=== PATIENT | female | born 1980 | race American Indian/Alaskan Native ===

== ENCOUNTER 2018-10-27 15:46 | Emergency (ER) | payer SELFPAY ==
[2018-10-27 16:56] VITALS: BP 117/68
--- NOTE | 2018-10-27 16:58 | Event Note ---
ED Screening Note Date of service: 10/27/18 Time: 16:54 ED Screening Note: 37 y/o female comes in for vaginal bleeding Lmp end of August. Reports that she is 3 weeks preg. Having abd pain. 2 Miscarriages This initial assessment/diagnostic orders/clinical plan/treatment(s) is/are subject to change based on patients health status, clinical progression and re- assessment by fellow clinical providers in the ED. Further treatment and workup at subsequent clinical providers discretion. Patient/guardian urged not to elope from the ED as their condition may be serious if not clinically assessed and managed. Initial orders include:
[2018-10-27 18:30] LABS: Basophils % (Auto) 0.8 % (0.0-1.8); Eosinophils # (Auto) 0.1 K/mm3 (0.0-0.4); Eosinophils % (Auto) 1.2 % (0.0-4.3); Hematocrit 34.8 % (30.3-42.9); Hemoglobin 11.6 gm/dl (10.1-14.3); Lymphocytes # (Auto) 1.6 K/mm3 (1.2-5.4); Lymphocytes % (Auto) 33.1 % (13.4-35.0); Mean Corpuscular HGB Conc 33 % (30-34); Mean Corpuscular Volume 88 fl (79-97); Monocytes # (Auto) 0.4 K/mm3 (0.0-0.8); Monocytes % (Auto) 8.1 % (0.0-7.3); Platelet Count 226 K/mm3 (140-440); Red Blood Count 3.93 M/mm3 (3.65-5.03); Red Cell Distribution Width 14.7 % (13.2-15.2)
[2018-10-27 18:33] LABS: Bilirubin,Urine NEG (Negative); Blood,Urine LG (Negative); Color,Urine Yellow (Yellow); Mucus,Urine FEW /HPF; Protein,Urine <15 mg/dL mg/dL (Negative); Urobilinogen,Urine < 2.0 mg/dL (<2.0)
[2018-10-27 19:02] LABS: Alanine Aminotransferase 22 units/L (7-56); Albumin 4.4 g/dL (3.9-5); BUN/Creatinine Ratio 17; Blood Urea Nitrogen 12 mg/dL (7-17); Calcium 9.3 mg/dL (8.4-10.2); Hemolysis Index 0
--- NOTE | 2018-10-27 19:48 | Emergency Department Report ---
ED HPI - General Chief complaint: Vaginal Bleeding Stated complaint: POSS MISCARRIAGE Time Seen by Provider: 10/27/18 17:38 Source: patient Mode of arrival: Ambulatory Limitations: No Limitations - History of Present Illness Initial comments: This is a 37-year-old female nontoxic, well nourished in appearance, no acute signs of distress presents to the ED with c/o of vaginal bleeding and pelvic cramping x1 day. Patient denies any abdominal pain. Patient denies any vaginal discharge or foul odor. Patient denies any nausea, vomiting, chest pain, shortness of breathe, fever, chills, headache, stiff neck, numbness, tingling. Patient denies any urinary symptoms. Patient denies any allergies or PMH. -: days(s) (1) Location: pelvis Radiation: none Severity: mild Severity scale (0 -10): 3 Quality: cramping, aching Consistency: constant Improves with: none Worsens with: none Associated symptoms: vaginal bleeding. denies: nausea/vomiting, vaginal discharge, abdominal pain, dysuria, headache, vision changes, malaise, dysparuenia, rash, seizure, shortness of breath, syncope, weakness Vaginal bleeding: light :: Yes Number of weeks : 3 Pre- care: none - Related Data Allergies Allergy/AdvReac Type Severity Reaction Status Date / Time No Known Allergies Allergy Verified 10/27/18 16:57 ED Review of Systems ROS: Stated complaint: POSS MISCARRIAGE Other details as noted in HPI Constitutional: denies: chills, fever Eyes: denies: eye pain, eye discharge, vision change ENT: denies: ear pain, throat pain Respiratory: denies: cough, shortness of breath, wheezing Cardiovascular: denies: chest pain, palpitations Endocrine: no symptoms reported Gastrointestinal: denies: abdominal pain, nausea, diarrhea Genitourinary: abnormal menses. denies: urgency, dysuria, discharge Musculoskeletal: denies: back pain, joint swelling, arthralgia Skin: denies: rash, lesions Neurological: denies: headache, weakness, paresthesias Psychiatric: denies: anxiety, depression Hematological/Lymphatic: denies: easy bleeding, easy bruising ED Past Medical Hx - Past Medical History Previous Medical History?: No - Surgical History Past Surgical History?: No - Social History Smoking Status: Current Some Day Smoker Substance Use Type: None ED Physical Exam - General Limitations: No Limitations General appearance: alert, in no apparent distress - Head Head exam: Present: atraumatic, normocephalic - Neck Neck exam: Present: normal inspection, full ROM. Absent: tenderness, meningismus, lymphadenopathy - Respiratory Respiratory exam: Present: normal lung sounds bilaterally. Absent: respiratory distress, wheezes, rales, rhonchi, stridor, chest wall tenderness, accessory muscle use, decreased breath sounds, prolonged expiratory - Cardiovascular Cardiovascular Exam: Present: regular rate, normal rhythm, normal heart sounds. Absent: bradycardia, tachycardia, irregular rhythm, systolic murmur, diastolic murmur, rubs, gallop - GI/Abdominal GI/Abdominal exam: Present: soft, normal bowel sounds. Absent: distended, tenderness, guarding, rebound, rigid, diminished bowel sounds - Extremities Exam Extremities exam: Present: normal inspection, full ROM - Back Exam Back exam: Present: normal inspection, full ROM. Absent: tenderness, CVA tenderness (R), CVA tenderness (L), muscle spasm, paraspinal tenderness, vertebral tenderness, rash noted - Neurological Exam Neurological exam: Present: alert, oriented X3, normal gait - Psychiatric Psychiatric exam: Present: normal affect, normal mood - Skin Skin exam: Present: warm, dry, intact, normal color. Absent: rash ED Course Vital Signs 10/27/18 16:54 Temperature 98.8 F Pulse Rate 70 Respiratory 18 Rate Blood Pressure 117/68 [Right] O2 Sat by Pulse 99 Oximetry - Reevaluation(s) Reevaluation #1: 10/27/18 19:48 Patient is speaking in full sentences with no signs of distress noted. ED Medical Decision Making - Lab Data Result diagrams: 10/27/18 17:44 10/27/18 17:44 - Medical Decision Making This is a 37-year-old female presents with vaginal bleeding. Patient is stable and was examined by me. Normal abdominal exam. US OB has been ordered but patie nt was not to be found. Daryl and myself called patient several times to listed phone number and is unable to get in touch with patient. Ua obtained. Quantative serum test obtained. Patient left ELOPED without telling anyone. Critical care attestation.: If time is entered above; I have spent that time in minutes in the direct care of this critically ill patient, excluding procedure time. ED Disposition Clinical Impression: Vaginal bleeding Disposition: Z ELOPED Is pt being admited?: No Condition: Stable
== END 2018-10-27 21:24 | disposition left against medical advice (07) ==
LOC: ED 15:46
DX: O20.0 Threatened abortion (principal); Z53.21 Procedure and treatment not carried out due to patient leaving prior to being seen by health care provider
CPT/HCPCS: 36415; 80053; 81001; 84702; 85025; 86900; 86901

== ENCOUNTER 2021-07-31 10:29 | Emergency (ER) | payer SELFPAY ==
[2021-07-31 11:40] LABS: Bilirubin,Urine NEG (Negative); Blood,Urine MOD (Negative); Color,Urine Yellow (Yellow); Protein,Urine <15 mg/dL mg/dL (Negative); Urobilinogen,Urine < 2.0 mg/dL (<2.0)
[2021-07-31 11:49] LABS: HCG Qualitative,Urine Negative (Negative)
--- NOTE | 2021-07-31 12:00 | Emergency Department Report ---
ED Abdominal Pain HPI - General Chief Complaint: Abdominal Pain Stated Complaint: BLOOD IN URINE/ABDOMINA PAIN PUI?: No Time Seen by Provider: 07/31/21 11:19 Source: patient Mode of arrival: Ambulatory Limitations: No Limitations - History of Present Illness Initial Comments: 40 Y F with no significant PMH reports abdominal pain for about 6 months with blood in urine and fatigue and weakness for 2 weeks. denies N/V/D. report tubal ligation over 10 years ago denies concerns for . No other symptoms reported. MD Complaint: abdominal pain Onset/Timin -: month(s) Location: LLQ, RLQ Radiation: none Migration to: no migration Severity: mild Severity scale (0 -10): 5 Quality: cramping, dull Worsens With: movement - Related Data Previous Rx's Medication Instructions Recorded Last Taken Type Acetaminophen/Codeine [Tylenol 1 tab PO Q6H PRN 3 Days #12 tab 07/31/21 Unknown Rx /Codeine # 3 tab] Allergies Allergy/AdvReac Type Severity Reaction Status Date / Time No Known Allergies Allergy Verified 10/27/18 16:57 ED Review of Systems ROS: Stated complaint: BLOOD IN URINE/ABDOMINA PAIN Other details as noted in HPI Constitutional: denies: chills, fever Eyes: denies: eye pain, eye discharge, vision change ENT: denies: ear pain, throat pain Respiratory: denies: cough, shortness of breath, wheezing Cardiovascular: denies: chest pain, palpitations Endocrine: no symptoms reported Gastrointestinal: denies: abdominal pain, nausea, diarrhea Genitourinary: hematuria. denies: urgency, dysuria, discharge Musculoskeletal: denies: back pain, joint swelling, arthralgia Skin: denies: rash, lesions Neurological: denies: headache, weakness, paresthesias Psychiatric: denies: anxiety, depression Hematological/Lymphatic: denies: easy bleeding, easy bruising ED Past Medical Hx - Past Medical History Previous Medical History?: No - Surgical History Past Surgical History?: No - Social History Smoking Status: Never Smoker Substance Use Type: None - Medications Home Medications: Home Medications Medication Instructions Recorded Confirmed Last Taken Type Acetaminophen/Codeine [Tylenol 1 tab PO Q6H PRN 3 Days #12 tab 07/31/21 Unknown Rx /Codeine # 3 tab] ED Physical Exam - General Limitations: No Limitations General appearance: alert, in no apparent distress - Eye Eye exam: Present: normal appearance - ENT ENT exam: Present: mucous membranes moist - Respiratory Respiratory exam: Present: normal lung sounds bilaterally. Absent: respiratory distress - Cardiovascular Cardiovascular Exam: Present: regular rate, normal rhythm. Absent: systolic murmur, diastolic murmur, rubs, gallop - GI/Abdominal GI/Abdominal exam: Present: soft, distended, tenderness (bilateral lower abdominal ), normal bowel sounds. Absent: guarding, rebound - Extremities Exam Extremities exam: Present: normal inspection - Neurological Exam Neurological exam: Present: alert, oriented X3 - Psychiatric Psychiatric exam: Present: normal affect, normal mood - Skin Skin exam: Present: warm, dry, intact, normal color. Absent: rash ED Course Vital Signs 07/31/21 07/31/21 07/31/21 10:50 11:33 15:08 Temperature 98.6 F 98.0 F Pulse Rate 99 H 85 Respiratory 16 18 Rate Blood Pressure 111/67 120/74 [Left] O2 Sat by Pulse 99 99 99 Oximetry - Consultations Consultation #1: 07/31/21 14:08 [paged OB education program specialist Dr. Pavel Castano due to US findings of 15cm heterogeneous mass with internal vascularity ED Medical Decision Making - Lab Data Result diagrams: 07/31/21 11:49 07/31/21 11:49 - Radiology Data Radiology results: report reviewed very large 15 cm heterogeneous mass intrauterine per US findings - Medical Decision Making labs reviewed - no acute process noted. US - 15 cm intrauterine mass noted paged OB Dr Evans education program specialist [employer] and was inform to have patient follow up with her in office and D/C home with pain medication patient was informed of results to follow up with OB-[employer] SUPERVISOR. patient agrees with plan of care and verbalized understanding. Lab Results 07/31/21 07/31/21 07/31/21 Range/Units 11:09 11:49 11:49 WBC 4.1 L (4.5-11.0) K/mm3 RBC 3.78 (3.65-5.03) M/mm3 Hgb 7.6 L (10.1-14.3) gm/dl Hct 25.8 L (30.3-42.9) % MCV 68 L (79-97) fl MCH 20 L (28-32) pg MCHC 30 (30-34) % RDW 20.7 H (13.2-15.2) % Plt Count 271 (140-440) K/mm3 Lymph % (Auto) 38.7 H (13.4-35.0) % [place] % (Auto) 11.8 H (0.0-7.3) % Eos % (Auto) 2.7 (0.0-4.3) % Baso % (Auto) 0.9 (0.0-1.8) % Lymph # (Auto) 1.6 (1.2-5.4) K/mm3 [place] # (Auto) 0.5 (0.0-0.8) K/mm3 Eos # (Auto) 0.1 (0.0-0.4) K/mm3 Baso # (Auto) 0.0 (0.0-0.1) K/mm3 Seg Neutrophils % 45.9 (40.0-70.0) % Seg Neutrophils # 1.9 (1.8-7.7) K/mm3 Sodium 141 (137-145) mmol/L Potassium 4.1 (3.6-5.0) mmol/L Chloride 109.1 H (98-107) mmol/L Carbon Dioxide 23 (22-30) mmol/L Anion Gap 13 mmol/L BUN 13 (7-17) mg/dL Creatinine 0.6 (0.6-1.2) mg/dL Estimated GFR > 60 ml/min BUN/Creatinine Ratio 22 % Glucose 84 (65-100) mg/dL Calcium 9.1 (8.4-10.2) mg/dL Total Bilirubin 0.20 (0.1-1.2) mg/dL AST 19 (5-40) units/L ALT 18 (7-56) units/L Alkaline Phosphatase 62 (35-129) units/L Total Protein 6.3 (6.3-8.2) g/dL Albumin 3.7 L (3.9-5) g/dL Albumin/Globulin Ratio 1.4 % Urine Color Yellow (Yellow) Urine Turbidity Clear (Clear) Urine pH 5.0 (5.0-7.0) Ur Specific [place] 1.023 (1.003-1.030) Urine Protein <15 mg/dl (Negative) mg/dL Urine Glucose (UA) Neg (Negative) mg/dL Urine Ketones Neg (Negative) mg/dL Urine Blood Mod (Negative) Urine Nitrite Neg (Negative) Urine Bilirubin Neg (Negative) Urine Urobilinogen < 2.0 (<2.0) mg/dL Ur Leukocyte Esterase Neg (Negative) Urine WBC (Auto) 1.0 (0.0-6.0) /HPF Urine RBC (Auto) 1.0 (0.0-6.0) /HPF U Epithel Cells (Auto) 6.0 (0-13.0) /HPF Urine HCG, Qual Negative (Negative) Vital Signs 07/31/21 07/31/21 07/31/21 10:50 11:33 15:08 Temperature 98.6 F 98.0 F Pulse Rate 99 H 85 Respiratory 16 18 Rate Blood Pressure 111/67 120/74 [Left] O2 Sat by Pulse 99 99 99 Oximetry Critical care attestation.: If time is entered above; I have spent that time in minutes in the direct care of this critically ill patient, excluding procedure time. ED Disposition Clinical Impression: Uterine mass, Uterine fibroid Disposition: 01 HOME / SELF CARE / HOMELESS Is pt being admited?: No Condition: Stable Instructions: Uterine Fibroids, Abdominal Pain (ED) Prescriptions: Acetaminophen/Codeine [Tylenol /Codeine # 3 tab] 1 tab PO Q6H PRN 3 Days #12 tab PRN Reason: Pain , Severe (7-10) Referrals: DUYEN MCGOWAN MD [Primary Care Provider] - 3-5 Days JOSE CARLOS EVANS MD [Staff Physician] - 3-5 Days
[2021-07-31 12:07] LABS: Basophils % (Auto) 0.9 % (0.0-1.8); Eosinophils # (Auto) 0.1 K/mm3 (0.0-0.4); Eosinophils % (Auto) 2.7 % (0.0-4.3); Hematocrit 25.8 % (30.3-42.9); Hemoglobin 7.6 gm/dl (10.1-14.3); Lymphocytes # (Auto) 1.6 K/mm3 (1.2-5.4); Lymphocytes % (Auto) 38.7 % (13.4-35.0); Mean Corpuscular HGB Conc 30 % (30-34); Monocytes # (Auto) 0.5 K/mm3 (0.0-0.8); Monocytes % (Auto) 11.8 % (0.0-7.3); Platelet Count 271 K/mm3 (140-440); Red Blood Count 3.78 M/mm3 (3.65-5.03)
[2021-07-31 12:16] LABS: Mean Corpuscular Volume 68 fl (79-97); Red Cell Distribution Width 20.7 % (13.2-15.2)
[2021-07-31 12:22] LABS: Alanine Aminotransferase 18 units/L (7-56); Albumin 3.7 g/dL (3.9-5); BUN/Creatinine Ratio 22; Blood Urea Nitrogen 13 mg/dL (7-17); Calcium 9.1 mg/dL (8.4-10.2); Hemolysis Index 1
--- NOTE | 2021-07-31 13:48 | Ultrasound Report ---
US pelvic complete INDICATION / CLINICAL INFORMATION: lower abdominal pain. TECHNIQUE: Transabdominal. Duplex Color Doppler used: Yes. COMPARISON: None available FINDINGS: UTERUS: Very large 15cm heterogeneous mass with internal vascularity. RIGHT ADNEXA: Ovary is not well visualized. Normal color Doppler blood flow. LEFT ADNEXA: No significant ovarian cyst or mass. Normal color Doppler blood flow. URINARY BLADDER: No significant abnormality. FREE FLUID: None. ADDITIONAL FINDINGS: None. IMPRESSION: 1. Very large intrauterine mass which is thought to be a subserosal fibroid. Gynecological consultat ion is recommended. Signer Name: Jeanmarie Chandler MD Signed: 07/31/2021 1:44 PM Workstation Name: [id number]
[2021-07-31 15:09] VITALS: BP 120/74
== END 2021-07-31 15:09 | disposition home or self-care (01) ==
LOC: ED 10:29
DX: N85.2 Hypertrophy of uterus (principal); D25.9 Leiomyoma of uterus, unspecified
CPT/HCPCS: 36415; 76856; 80053; 81001; 81025; 85025; 99284

== ENCOUNTER 2021-08-20 07:28 | Emergency (ER) | payer SELFPAY ==
[2021-08-20 07:34] VITALS: BP 119/56
--- NOTE | 2021-08-20 10:35 | XRay Report ---
CHEST 2 VIEWS INDICATION: FEVER. COMPARISON: none FINDINGS: Support devices: None. Heart: Within normal limits. Lungs/pleura: No acute air space or interstitial disease. No pneumothorax. Additional findings: None. IMPRESSION: Normal chest x-ray Signer Name: Edouard Chávez Jr, MD Signed: 08/20/2021 10:31 AM Workstation Name: [id number]
[2021-08-20 11:12] LABS: Hematocrit 27.2 % (30.3-42.9); Hemoglobin 8.2 gm/dl (10.1-14.3); Mean Corpuscular HGB Conc 30 % (30-34); Mean Corpuscular Volume 68 fl (79-97); Platelet Count 292 K/mm3 (140-440); Red Blood Count 4.02 M/mm3 (3.65-5.03); Red Cell Distribution Width 22.2 % (13.2-15.2)
[2021-08-20 11:23] LABS: Alanine Aminotransferase 45 units/L (7-56); Albumin 4.5 g/dL (3.9-5); Blood Urea Nitrogen 10 mg/dL (7-17); Calcium 9.4 mg/dL (8.4-10.2); Hemolysis Index 1
[2021-08-20 11:26] LABS: BUN/Creatinine Ratio 17
[2021-08-20 11:40] LABS: Bacteria,Urine 1+ /HPF (Negative); Bilirubin,Urine NEG (Negative); Blood,Urine NEG (Negative); Color,Urine Yellow (Yellow); HCG Qualitative,Urine Negative (Negative); Mucus,Urine FEW /HPF; Protein,Urine <15 mg/dL mg/dL (Negative); Urobilinogen,Urine < 2.0 mg/dL (<2.0)
[2021-08-20] MEDS ORDERED: ACETAMINOPHEN 500 MG TAB PO ONE (11:54)
--- NOTE | 2021-08-20 11:55 | Emergency Department Report ---
ED Fever HPI - General Chief Complaint: Fever Stated Complaint: BODYACHES,HEADACHES Time Seen by Provider: 08/20/21 09:57 Source: patient Exam Limitations: no limitations - History of Present Illness Initial Comments: Patient is a 40-year-old female that comes to the emergency room with a 2-day history of chills and dysuria. Denies vaginal discharge. Denies back pain. Patient denies chest pain or shortness of breath. Patient denies abdominal pain. Patient denies headache. Patient is ambulatory, [id number] nontoxic on arrival to the ER. Timing/Duration: yesterday Fever Severity/Quality: subjective Associated Symptoms: denies: denies symptoms, abdominal pain, chest pain, confusion, cough, diaphoresis, headache, muscle aches, nausea/vomiting, rash, shortness of breath, sore throat, stiff neck, syncope, weakness, other ED Review of Systems ROS: Stated complaint: BODYACHES,HEADACHES Other details as noted in HPI Comment: All other systems reviewed and negative ED Past Medical Hx - Past Medical History Previous Medical History?: No - Surgical History Past Surgical History?: No - Family History Family history: no significant - Social History Smoking Status: Never Smoker Substance Use Type: Alcohol, Marijuana - Medications Home Medications: Home Medications Medication Instructions Recorded Confirmed Last Taken Type Sulfamethoxazole/Trimethoprim 1 each PO BID #10 tablet 08/20/21 Unknown Rx [Bactrim DS TAB] ED Physical Exam - General Limitations: No Limitations General appearance: alert, in no apparent distress - Head Head exam: Present: atraumatic, normocephalic - Eye Eye exam: Present: normal appearance - ENT ENT exam: Present: mucous membranes moist - Neck Neck exam: Present: normal inspection - Respiratory Respiratory exam: Present: normal lung sounds bilaterally. Absent: respiratory distress - Cardiovascular Cardiovascular Exam: Present: regular rate, normal rhythm. Absent: systolic murmur, diastolic murmur, rubs, gallop - GI/Abdominal GI/Abdominal exam: Present: soft, normal bowel sounds - Extremities Exam Extremities exam: Present: normal inspection - Back Exam Back exam: Present: normal inspection - Neurological Exam Neurological exam: Present: alert, oriented X3 - Psychiatric Psychiatric exam: Present: normal affect, normal mood - Skin Skin exam: Present: warm, dry, intact, normal color. Absent: rash ED Course Vital Signs 08/20/21 08/20/21 08/20/21 07:33 09:55 12:05 Temperature 98.8 F Pulse Rate 86 Respiratory 18 16 16 Rate Blood Pressure 119/56 [Right] O2 Sat by Pulse 100 98 Oximetry 08/20/21 12:59 Temperature 98.8 F Pulse Rate 86 Respiratory 16 Rate Blood Pressure 119/56 [Right] O2 Sat by Pulse 100 Oximetry ED Medical Decision Making - Lab Data Result diagrams: 08/20/21 10:31 08/20/21 10:31 - Radiology Data Radiology results: report reviewed, image reviewed No acute process - Medical Decision Making Lab Results 08/20/21 08/20/21 08/20/21 Range/Units 10:31 10:31 10:37 WBC 7.6 (4.5-11.0) K/mm3 RBC 4.02 (3.65-5.03) M/mm3 Hgb 8.2 L (10.1-14.3) gm/dl Hct 27.2 L (30.3-42.9) % MCV 68 L (79-97) fl MCH 20 L (28-32) pg MCHC 30 (30-34) % RDW 22.2 H (13.2-15.2) % Plt Count 292 (140-440) K/mm3 Sodium 139 (137-145) mmol/L Potassium 4.1 (3.6-5.0) mmol/L Chloride 105.2 (98-107) mmol/L Carbon Dioxide 23 (22-30) mmol/L Anion Gap 15 mmol/L BUN 10 (7-17) mg/dL Creatinine 0.6 (0.6-1.2) mg/dL Estimated GFR > 60 ml/min BUN/Creatinine Ratio 17 % Glucose 106 H (65-100) mg/dL Calcium 9.4 (8.4-10.2) mg/dL Total Bilirubin 0.20 (0.1-1.2) mg/dL AST 44 H (5-40) units/L ALT 45 (7-56) units/L Alkaline Phosphatase 70 (35-129) units/L Total Protein 6.7 (6.3-8.2) g/dL Albumin 4.5 (3.9-5) g/dL Albumin/Globulin Ratio 2.0 % Lipase 15 (13-60) units/L Urine Color Yellow (Yellow) Urine Turbidity Clear (Clear) Urine pH 5.0 (5.0-7.0) Ur Specific [place] 1.028 (1.003-1.030) Urine Protein <15 mg/dl (Negative) mg/dL Urine Glucose (UA) Neg (Negative) mg/dL Urine Ketones Neg (Negative) mg/dL Urine Blood Neg (Negative) Urine Nitrite Neg (Negative) Urine Bilirubin Neg (Negative) Urine Urobilinogen < 2.0 (<2.0) mg/dL Ur Leukocyte Esterase Neg (Negative) Urine WBC (Auto) 9.0 H (0.0-6.0) /HPF Urine RBC (Auto) 2.0 (0.0-6.0) /HPF U Epithel Cells (Auto) 2.0 (0-13.0) /HPF Urine Bacteria (Auto) 1+ (Negative) /HPF Urine Mucus Few /HPF Urine HCG, Qual Negative (Negative) Vital Signs 08/20/21 08/20/21 07:33 09:55 Temperature 98.8 F Pulse Rate 86 Respiratory 18 16 Rate Blood Pressure 119/56 [Right] O2 Sat by Pulse 100 98 Oximetry Labs noted. Patient has acute on chronic anemia. He has a history of fibroids. UA noted. Prior negative X-ray noted. Patient being discharged home on Bactrim. If her culture should require other antibiotics please call her. On discharge patient ambulatory and taking p.o. without difficulty. Patient discharged home and verbalizes understanding of discharge plan of care including diet, activity, medications and follow-up. - Differential Diagnosis Rule out UTI versus Mack versus kidney stone Critical care attestation.: If time is entered above; I have spent that time in minutes in the direct care of this critically ill patient, excluding procedure time. ED Disposition Clinical Impression: Chronic anemia UTI (urinary tract infection) Qualifiers: Urinary tract infection type: site unspecified Hematuria presence: without hematuria Qualified Code(s): N39.0 - Urinary tract infection, site not specified Disposition: 01 HOME / SELF CARE / HOMELESS Is pt being admited?: No Does the pt Need Aspirin: No Condition: Stable Additional Instructions: Medication as ordered today. Motrin or Tylenol for pain or fever Stay well-hydrated with water Follow-up with PCP after you complete medication to make sure that you are improved. Referral to PCP below Prescriptions: Sulfamethoxazole/Trimethoprim [Bactrim DS TAB] 1 each PO BID #10 tablet Referrals: DUYEN MCGOWAN MD [Staff Physician] - 3-5 Days WALTER RODARTE MD [Staff Physician] - 3-5 Days Forms: Work/School Release Form(ED) Time of Disposition: 11:54
== END 2021-08-20 12:59 | disposition home or self-care (01) ==
LOC: ED 07:28
DX: N39.0 Urinary tract infection, site not specified (principal); D64.9 Anemia, unspecified; F12.90 Cannabis use, unspecified, uncomplicated; Z72.89 Other problems related to lifestyle; Z79.899 Other long term (current) drug therapy
CPT/HCPCS: 36415; 71046; 80053; 81001; 81025; 83690; 85027; 87086; 99284